=== PATIENT | male | born 1995 ===

== ENCOUNTER 2021-12-15 11:04 | Emergency (ER) | payer SELFPAY ==
[2021-12-15 11:23] VITALS: BP 107/63
--- NOTE | 2021-12-15 12:49 | Event Note ---
ED Screening Note ED Screening Note: Patient comes to the emergency room with low back pain. He also complains of anxiety. Vital signs stable in triage. Vital Signs 12/15/21 11:04 Temperature 98.3 F Pulse Rate 100 H Respiratory 18 Rate Blood Pressure 107/63 [Left] O2 Sat by Pulse 100 Oximetry This initial assessment/diagnostic orders/clinical plan/treatment(s) is/are subject to change based on patients health status, clinical progression and re- assessment by fellow clinical providers in the ED. Further treatment and workup at subsequent clinical providers discretion. Patient/guardian urged not to elope from the ED as their condition may be serious if not clinically assessed and managed. Initial orders include: Patient left prior to being seen due to the wait.
== END 2021-12-15 17:35 | disposition left against medical advice (07) ==
LOC: ED 11:04
DX: R06.02 Shortness of breath (principal); Z53.21 Procedure and treatment not carried out due to patient leaving prior to being seen by health care provider